=== PATIENT | female | born 1985 | race Caucasian/White ===

== ENCOUNTER 2017-09-29 01:42 | Emergency (ER) | payer BC ==
[~2017-09-29] VITALS: Ht 162.6 cm; Wt 97.3 kg
[2017-09-29 01:42] VITALS: BP 115/84
[~2017-09-29 01:42] MED LIST: ACET325T9 PO; IBUP400T18 PO; METH10TA2 PO; PHEN37.598 PO
--- NOTE | 2017-09-29 02:17 | PHYS DOC ---
General Chief Complaint: LOWER BACK PAIN OR INJURY Stated Complaint: BACK AND PELVIC PAIN Time Seen by MD: 01:47 Source: patient, old records Exam Limitations: no limitations Problems: History of Present Illness Initial Comments Patient is a 31-year-old female who comes to the ED complaining of exacerbation of chronic pain complaints. Patient states that she suffered a severe fall injury approximately 10 years ago with severe lumbar spine injuries and requiring pelvic reconstruction. She states that she has had chronic low back pain since that time and has been evaluated by multiple back surgeons but no intervention due to her young age. States that she has had injections and TENS unit, nerve ablation and no modalities have provided relief. She has been on narcotic medications since that time and has been on methadone for years. She says this past month insurance has cut her methadone allowance by over 50% and she cannot obtain a refill for 2 days, she thinks her last dosing was 2 days ago. She complains of a severe exacerbation of her chronic pain, denies any new symptoms no bowel or bladder symptoms no saddle anesthesia. She has chronic leg weakness and tingling but denies any new issues. On arrival she is mildly tachycardic with heart rate in the 110s, she says she has insomnia and agitation and has had some sweats. She denies prior withdrawal symptoms and states that current symptoms are due to her pain and not any type of withdrawal. Denies nausea vomiting. Timing/Duration: other Severity: severe Modifying Factors: improves with medication Associated Symptoms: other Allergies: Coded Allergies: Penicillins (Verified Allergy, Unknown, hives, 11/18/14) butorphanol tartrate (Verified Allergy, Unknown, GI cramping, vomiting and diarrhea, 11/18/14) ketorolac tromethamine (Verified Allergy, Unknown, GI cramping, vomiting and diarrhea, 11/18/14) morphine (Verified Allergy, Unknown, anaphylaxis, 11/18/14) Past Medical History Medical History: other (chronic pain, opiate dependence) Surgical History: noncontributory Social History Smoker: non-smoker Alcohol: none Drugs: none Review of Systems Constitutional: denies chills, denies fever, denies malaise Respiratory: denies cough, denies shortness of breath, denies wheezing Cardiovascular: denies chest pain, denies palpitations, denies syncope Gastrointestinal: denies abdominal pain, denies nausea, denies vomiting Genitourinary: denies dysuria, denies frequency, denies hematuria Musculoskeletal: see HPI Psychiatric/Neurological: see HPI Physical Exam General Appearance: mild distress Neck: non-tender, supple Respiratory: normal breath sounds, no respiratory distress Cardiovascular: normal peripheral pulses, tachycardia Gastrointestinal: non tender, soft Back: no CVA tenderness, no vertebral tenderness Extremities: non-tender, normal inspection 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 1 mg of Dilaudid intramuscularly will be given patient advised that she must follow- up with her doctor for chronic pain management. Her questions were answered she has a significant other who is driving her home and expresses agreement and understanding of the treatment plan. Departure Time of Disposition: 02:08 Disposition: 01 HOME, SELF-CARE Diagnosis: chronic pain, opiate dependence Condition: STABLE Patient Instructions: Chronic Pain Management, Opiate Dependence Additional Instructions: Please review the patient education materials given by ED staff. Follow-up with your pain follow-up with your pain management doctor tomorrow for recheck and further evaluation and treatment. Return to ED with new or changing symptoms. PHILIP FAJARDO DO Sep 29, 2017 02:17
[2017-09-29] MEDS ORDERED: HYDROmorphone PF 2 MG/ML VIAL IM ONE (02:30)
== END 2017-09-29 02:22 | disposition home or self-care (01) ==
LOC: ER 01:42
DX: G89.29 Other chronic pain (principal); M54.5 Low back pain; F11.20 Opioid dependence, uncomplicated; Z88.0 Allergy status to penicillin; Z88.5 Allergy status to narcotic agent; Z88.8 Allergy status to other drugs, medicaments and biological substances
CPT/HCPCS: 96372; 99283; J1170

== ENCOUNTER → 2020-03-10 | Outpatient (CLI) | payer BC ==
--- NOTE | 2020-03-10 17:02 | RAD ---
AP and lateral right tibia and fibula radiographs 03/10/2020 CLINICAL HISTORY: Fall with injury to the right lower leg. AP and lateral digital radiographs of the right tibia and fibula were obtained. No fracture or dislocation is seen. No radiopaque foreign body is noted. IMPRESSION: No fracture or dislocation of the right tibia or fibula is seen. Electronically signed by: Deuce Rush MD (03/10/2020 4:59 PM) [id number]
== END ==
LOC: DXRAD 15:12
PROVIDERS: ATTEND Family Medicine
DX: M79.604 Pain in right leg (principal)
CPT/HCPCS: 73590